=== PATIENT | female | born 1925 | race Caucasian/White ===

== ENCOUNTER 2017-02-12 18:38 | Inpatient (IN) | payer MEDICARE, OTHER ==
[~2017-02-12] VITALS: Ht 175.3 cm; Wt 55.3 kg
[2017-02-12] MEDS ORDERED: SODIUM CHLORIDE 0.9% 1,000 ML IV ONE (20:11)
[2017-02-12] MEDS ORDERED: NALBUPHINE HCL 10 MG/1ml INJECTION IV ONE (20:15)
[2017-02-12] MEDS ORDERED: ONDANSETRON HCL 4 MG/2 ML VIAL IV ONE (20:15)
[2017-02-12 20:59] LABS: Basophils # (auto) 0 uL; Eosinophils # (auto) 0 uL; Eosinophils % (auto) 0.2 % (0.0-7.0); Hemoglobin 12.4 g/dL (12.2-16.2); Lymphocytes # (auto) 1.2 uL; Lymphocytes % (auto) 8.9 % (10.0-50.0); Mean Corpuscular Hgb Conc. 32.5 g/dL (32.0-36.0); Mean Corpuscular Volume 89.2 fL (80.0-100.0); Mean Platelet Volume 7.9 fL (7.4-10.4); Monocytes # (auto) 0.5 uL; Monocytes % (auto) 3.9 % (0.0-12.0); Neutrophils # (auto) 11.7 uL; Platelet Count (auto) 252 10^3/uL (140-450); White Blood Cell 13.4 10^3/uL (4.4-10.8)
[2017-02-12 21:11] LABS: INR 1.04 (0.9-1.15); Prothrombin Time 11.2 sec (9.37-12.3)
[2017-02-12 21:30] LABS: Albumin 3.6 g/dL (3.4-5.0); BUN/Creatinine Ratio 12.8; Calcium 8.7 mg/dL (8.5-10.1); Potassium 3.6 mmol/L (3.5-5.1)
[2017-02-12 21:35] LABS: Bilirubin, Total 0.6 mg/dL (0.2-1.0); Total Protein 7.4 g/dL (6.4-8.2)
[2017-02-12 21:51] LABS: B-Type Natriuretic Peptide 147.02 pg/mL (0-100); Temperature: 23.4 C (20.0-25.0)
[2017-02-12] MEDS ORDERED: PIPERACILLIN-TAZOB 3.375GM 100 ML IV ONE (22:45)
[2017-02-12] MEDS ORDERED: FUROSEMIDE 20 MG/2 ML VIAL IV ONE (22:45)
[2017-02-12 23:49] LABS: Urine Bilirubin Negative (Negative); Urine Blood Negative /uL (Negative); Urine Color Yellow (Yellow); Urine Glucose Normal (Normal); Urine Nitrite Negative (Negative); Urine RBC <1 /hpf (0 - 4); Urine Urobilinogen Normal (Negative)
[2017-02-12 23:50] LABS: Urine Ketone 1+ (Negative)
[2017-02-13] VITALS (9 sets, daily range): BP systolic 101–158; BP diastolic 39–95
[2017-02-13] MEDS ORDERED: SODIUM CHLORIDE 0.9% 1,000 ML IV SCH (00:14)
[2017-02-13] MEDS ORDERED: ONDANSETRON HCL 4 MG/2 ML VIAL IV PRN (00:15)
[2017-02-13] MEDS ORDERED: ASPI81TA27 PO (02:38)
[2017-02-13] MEDS: MORPHINE SULF INJ 2 MG/ML SYRINGE 1ML IV PRN ×4 (03:13→22:23)
[2017-02-13] MEDS ORDERED: POTASSIUM CHL 10 Meq TABLET PO ONE (12:30)
[2017-02-13] MEDS ORDERED: cefTRIAXone 1GM/50ML D5W 50 ML IV ONE (12:45)
[2017-02-13] MEDS: SODIUM CHLORIDE 0.9% 1,000 ML IV SCH ×2 (16:33→23:51)
[2017-02-14] MEDS: MORPHINE SULF INJ 2 MG/ML SYRINGE 1ML IV PRN ×3 (05:01→17:27)
[2017-02-14 05:05] VITALS: BP 131/83
[2017-02-14 08:00] VITALS: BP 185/101
[2017-02-14] MEDS: cefTRIAXone 1GM/50ML D5W 50 ML IV SCH (08:29)
[2017-02-14 08:38] LABS: BUN/Creatinine Ratio 12.9; Basophils # (auto) 0 uL; Basophils % (auto) 0.2 % (0.0-2.0); Calcium 8.7 mg/dL (8.5-10.1); Eosinophils # (auto) 0.1 uL; Hemoglobin 13.2 g/dL (12.2-16.2); Lymphocytes # (auto) 1.1 uL; Lymphocytes % (auto) 10.4 % (10.0-50.0); Mean Corpuscular Hemoglobin 29.2 pg (28.0-32.0); Mean Corpuscular Hgb Conc. 32.1 g/dL (32.0-36.0); Mean Corpuscular Volume 90.8 fL (80.0-100.0); Mean Platelet Volume 8.1 fL (7.4-10.4); Monocytes # (auto) 0.7 uL; Monocytes % (auto) 6.8 % (0.0-12.0); Neutrophils # (auto) 8.4 uL; Neutrophils % (auto) 81.6 % (37.0-80.0); Platelet Count (auto) 243 10^3/uL (140-450); Potassium 3.6 mmol/L (3.5-5.1); Red Cell Distribution Width 13.9 % (11.6-16.0); White Blood Cell 10.3 10^3/uL (4.4-10.8)
[2017-02-14] MEDS: SODIUM CHLORIDE 0.9% 1,000 ML IV SCH (09:30)
[2017-02-14] MEDS: hydrALAZINE HCL 20 MG/ML VL IV PRN (13:17)
[2017-02-14] MEDS ORDERED: ceFAZolin 1GM/50ML D5W 50 ML IV ONE (13:43)
[2017-02-14 17:00] VITALS: BP 156/83
[2017-02-14 21:48] VITALS: BP 124/94
[2017-02-15] MEDS: SODIUM CHLORIDE 0.9% 1,000 ML IV SCH ×3 (00:02→12:16)
[2017-02-15] MEDS: MORPHINE SULF INJ 2 MG/ML SYRINGE 1ML IV PRN ×4 (00:03→18:50)
[2017-02-15 05:55] VITALS: BP 139/84
[2017-02-15 06:20] LABS: Basophils # (auto) 0 uL; Basophils % (auto) 0.3 % (0.0-2.0); Eosinophils # (auto) 0.1 uL; Eosinophils % (auto) 0.5 % (0.0-7.0); Hematocrit 39.4 % (36.0-46.0); Hemoglobin 12.9 g/dL (12.2-16.2); Lymphocytes # (auto) 1.5 uL; Lymphocytes % (auto) 11.3 % (10.0-50.0); Mean Corpuscular Hemoglobin 29.8 pg (28.0-32.0); Mean Corpuscular Hgb Conc. 32.8 g/dL (32.0-36.0); Mean Corpuscular Volume 90.9 fL (80.0-100.0); Mean Platelet Volume 7.9 fL (7.4-10.4); Monocytes # (auto) 0.8 uL; Monocytes % (auto) 5.7 % (0.0-12.0); Neutrophils % (auto) 82.2 % (37.0-80.0); Platelet Count (auto) 238 10^3/uL (140-450); Red Cell Distribution Width 14.4 % (11.6-16.0); White Blood Cell 13.4 10^3/uL (4.4-10.8)
[2017-02-15 06:41] LABS: BUN/Creatinine Ratio 19.2; Calcium 8.4 mg/dL (8.5-10.1); Potassium 4.1 mmol/L (3.5-5.1)
[2017-02-15 08:00] VITALS: BP 215/122
[2017-02-15] MEDS ORDERED: LACTULOSE 20Gm/30ML SOLN PO ONE (09:15)
[2017-02-15] MEDS ORDERED: SOTALOL HCL 80 MG TAB PO ONE (10:15)
[2017-02-15] MEDS: cefTRIAXone 1GM/50ML D5W 50 ML IV SCH (12:14)
[2017-02-15 15:27] VITALS: BP 215/122
[2017-02-15] MEDS: hydrALAZINE HCL 20 MG/ML VL IV PRN (16:08)
[2017-02-15] MEDS ORDERED: ENALAPRILAT 1.25 MG/ML-1ML VIAL IV PRN (16:45)
[2017-02-15] MEDS ORDERED: cloNIDine 0.2 mg/24hr 7DAY PATCH TD SCH (17:00)
[2017-02-15 20:20] VITALS: BP 186/89
[2017-02-15 21:30] VITALS: BP 186/89
[2017-02-15] MEDS: SOTALOL HCL 80 MG TAB PO SCH (22:56)
[2017-02-16] MEDS: SODIUM CHLORIDE 0.9% 1,000 ML IV SCH (01:51)
[2017-02-16 04:32] VITALS: BP 147/89
[2017-02-16] MEDS: MORPHINE SULF INJ 2 MG/ML SYRINGE 1ML IV PRN (05:17)
[2017-02-16 08:00] VITALS: BP 135/79
[2017-02-16] MEDS: cefTRIAXone 1GM/50ML D5W 50 ML IV SCH (09:04)
[2017-02-16 09:09] VITALS: BP 161/111
[2017-02-16] MEDS: SOTALOL HCL 80 MG TAB PO SCH ×2 (10:00→22:18)
[2017-02-16] MEDS ORDERED: ALBUMIN 25% 0 ML IV ONE (12:01)
[2017-02-16] MEDS ORDERED: TETRACAINE 1% INJ 2 ML VIAL IJ ONE (12:01)
[2017-02-16] MEDS ORDERED: ALBUMIN 5% 250 ML IV ONE (12:02)
[2017-02-16 12:05] VITALS: BP 135/79
[2017-02-16] MEDS ORDERED: fentaNYL CITRATE 100 MCG/2 ML VL ONE (12:06)
[2017-02-16] MEDS ORDERED: ONDANSETRON HCL 4 MG/2 ML VIAL ONE (12:06)
[2017-02-16] MEDS ORDERED: KETOROLAC TROMETH 60MG/2ML VIAL IM ONE (12:07)
[2017-02-16] MEDS ORDERED: DEXAMETHASONE SOD PHOS 10MG/1ML VIAL INJ ONE (12:07)
[2017-02-16] MEDS ORDERED: ceFAZolin 1GM/50ML D5W 100 ML IV ONE (12:08)
[2017-02-16] MEDS ORDERED: LIDOCAINE 1% HCL (LOCAL ANESTH.) INJ 20ML MDV ONE (13:06)
[2017-02-16] MEDS ORDERED: MIDAZOLAM HCL 1MG/1ML-2 ML VIAL ONE (13:12)
[2017-02-16] MEDS ORDERED: HYDROmorphone HCL 2 MG/ML VL IV PRN (14:45)
[2017-02-16] MEDS ORDERED: ONDANSETRON HCL 4 MG/2 ML VIAL IV ONE (14:45)
[2017-02-16 16:59] VITALS: BP 143/85
[2017-02-16] MEDS: ceFAZolin 1GM/50ML D5W 50 ML IV SCH ×2 (17:20→23:39)
[2017-02-16 20:00] VITALS: BP 172/89
[2017-02-16] MEDS: LACTULOSE 20Gm/30ML SOLN PO PRN (22:19)
[2017-02-17] MEDS: ceFAZolin 1GM/50ML D5W 50 ML IV SCH ×2 (06:05→13:09)
[2017-02-17 08:00] VITALS: BP 140/85
[2017-02-17 08:05] LABS: Hematocrit 36.3 % (36.0-46.0); Hemoglobin 11.8 g/dL (12.2-16.2)
[2017-02-17] MEDS ORDERED: ENOXAPARIN SOD 40 MG/0.4 ML SYRINGE SC SCH (10:00)
[2017-02-17] MEDS: cefTRIAXone 1GM/50ML D5W 50 ML IV SCH (10:12)
[2017-02-17] MEDS: SOTALOL HCL 80 MG TAB PO SCH ×2 (10:13→21:40)
[2017-02-17] MEDS: ENOXAPARIN SOD 40 MG/0.4 ML SYRINGE SC SCH (10:14)
[2017-02-17] MEDS: HYDROcodone-ACET 5/325MG TAB PO PRN (13:08)
[2017-02-17] MEDS: BOOST PLUS 8 ounce PO SCH ×2 (13:10→18:47)
[2017-02-17 20:00] VITALS: BP 159/116
[2017-02-17] MEDS: MORPHINE SULF INJ 2 MG/ML SYRINGE 1ML IV PRN (21:39)
[2017-02-17] MEDS: LACTULOSE 20Gm/30ML SOLN PO PRN (21:40)
[2017-02-17 22:00] VITALS: BP 159/116
[2017-02-18] VITALS (11 sets, daily range): BP systolic 101–155; BP diastolic 66–116
[2017-02-18 06:39] LABS: Hematocrit 27.4 % (36.0-46.0); Hemoglobin 9.2 g/dL (12.2-16.2)
[2017-02-18] MEDS ORDERED: cefTRIAXone 1GM/50ML D5W 50 ML IV SCH (09:00)
[2017-02-18] MEDS: ENOXAPARIN SOD 40 MG/0.4 ML SYRINGE SC SCH (09:01)
[2017-02-18] MEDS: SOTALOL HCL 80 MG TAB PO SCH ×2 (09:01→22:05)
[2017-02-18] MEDS: BOOST PLUS 8 ounce PO SCH ×3 (09:07→18:38)
[2017-02-18] MEDS ORDERED: SOTA80TA20 PO (09:45)
[2017-02-18] MEDS ORDERED: HAL5T PO (09:45)
[2017-02-18] MEDS ORDERED: RIVA10TA PO (09:45)
[2017-02-18] MEDS ORDERED: FLEET ENEMA(ADULT) 135 ML PR ONE (10:00)
[2017-02-18] MEDS: LACTULOSE 20Gm/30ML SOLN PO PRN (12:34)
[2017-02-18] MEDS: HALOPERIDOL 5 MG TAB PO PRN (14:32)
[2017-02-19] MEDS: HYDROcodone-ACET 5/325MG TAB PO PRN ×2 (03:38→21:51)
[2017-02-19 05:11] VITALS: BP_SYST 129; BP_SYST 163; BP_DIAS 80; BP_DIAS 97
[2017-02-19 06:43] LABS: Hemoglobin 9.5 g/dL (12.2-16.2)
[2017-02-19] MEDS: BOOST PLUS 8 ounce PO SCH ×3 (09:01→18:40)
[2017-02-19 09:20] VITALS: BP 158/87
[2017-02-19] MEDS: ENOXAPARIN SOD 40 MG/0.4 ML SYRINGE SC SCH (10:30)
[2017-02-19] MEDS: SOTALOL HCL 80 MG TAB PO SCH ×2 (10:30→21:51)
[2017-02-19] MEDS: HALOPERIDOL 5 MG TAB PO PRN (13:40)
[2017-02-19 17:18] VITALS: BP 198/106
[2017-02-19 22:00] VITALS: BP 158/81
[2017-02-19 23:30] VITALS: BP 149/71
[2017-02-20 05:00] VITALS: BP 146/71
[2017-02-20 07:41] LABS: Hemoglobin 9.7 g/dL (12.2-16.2)
[2017-02-20] MEDS: BOOST PLUS 8 ounce PO SCH ×2 (08:00→12:00)
[2017-02-20 08:17] VITALS: BP 151/104
[2017-02-20] MEDS: hydrALAZINE HCL 20 MG/ML VL IV PRN (09:06)
[2017-02-20] MEDS: ENOXAPARIN SOD 40 MG/0.4 ML SYRINGE SC SCH (09:09)
[2017-02-20] MEDS: SOTALOL HCL 80 MG TAB PO SCH (09:09)
[2017-02-20] MEDS ORDERED: HYDROcodone-ACET 5/325MG TAB PO PRN (09:45)
[2017-02-20 12:39] VITALS: BP 116/54
[2017-02-20 15:24] VITALS: BP 151/104
== END 2017-02-20 17:40 | DRG 469 ==
LOC: EDBD 18:38 → ER 18:49 → OVERFLOW 18:50 → WEST WING 02-13 00:50
PROVIDERS: ADMIT Emergency Medicine; ATTEND Internal Medicine
PROC: 0MBM0ZZ Excision of Left Hip Bursa and Ligament, Open Approach (ICD-10-PCS; 2017-02-16)
PROC: 0SRS0JZ Replacement of Left Hip Joint, Femoral Surface with Synthetic Substitute, Open Approach (ICD-10-PCS; principal; 2017-02-16 13:13)
PROC: 30233N1 Transfusion of Nonautologous Red Blood Cells into Peripheral Vein, Percutaneous Approach (ICD-10-PCS; 2017-02-18)
DX: M80.052A Age-related osteoporosis with current pathological fracture, left femur, initial encounter for fracture (principal); G93.41 Metabolic encephalopathy; I50.43 Acute on chronic combined systolic (congestive) and diastolic (congestive) heart failure; M70.72 Other bursitis of hip, left hip; G30.9 Alzheimer's disease, unspecified; I48.0 Paroxysmal atrial fibrillation; I11.0 Hypertensive heart disease with heart failure; F02.80 Dementia in other diseases classified elsewhere, unspecified severity, without behavioral disturbance, psychotic disturbance, mood disturbance, and anxiety; W19.XXXA Unspecified fall, initial encounter; Y93.89 Activity, other specified; Y92.89 Other specified places as the place of occurrence of the external cause; Z90.710 Acquired absence of both cervix and uterus; Z88.6 Allergy status to analgesic agent; Z88.5 Allergy status to narcotic agent
CPT/HCPCS: 36415; 71010; 73030; 73060; 73501; 73502; 80048; 80053; 81001; 83605; 83880; 84484; 85014; 85018; 85025; 85379; 85610; 85730; 86850; 86900; 86901; 86920; 87040; 93005; 93306; 93970; 96361; 96365; 96375; 97001; 97110; 97116; 97530; A4565; J0690; J0696; J1100; J1885; J2001; J2250; J2405; J2543

== ENCOUNTER 2017-04-08 01:59 | Emergency (ER) | payer MEDICARE, OTHER ==
[~2017-04-08] VITALS: Ht 162.6 cm; Wt 54.4 kg
[~2017-04-08 01:59] MED LIST: HAL5T PO; RIVA10TA PO; SOTA80TA20 PO
[2017-04-08 04:52] LABS: Basophils # (auto) 0 uL; Basophils % (auto) 0.3 % (0.0-2.0); Eosinophils # (auto) 0.3 uL; Hematocrit 31.1 % (36.0-46.0); Hemoglobin 10.2 g/dL (12.2-16.2); Lymphocytes # (auto) 2.3 uL; Lymphocytes % (auto) 25.8 % (10.0-50.0); Mean Corpuscular Hemoglobin 29.6 pg (28.0-32.0); Mean Corpuscular Hgb Conc. 32.8 g/dL (32.0-36.0); Mean Corpuscular Volume 90.2 fL (80.0-100.0); Mean Platelet Volume 8.4 fL (7.4-10.4); Monocytes # (auto) 0.7 uL; Monocytes % (auto) 7.5 % (0.0-12.0); Neutrophils # (auto) 5.6 uL; Neutrophils % (auto) 63.4 % (37.0-80.0); Platelet Count (auto) 308 10^3/uL (140-450); Red Cell Distribution Width 16.5 % (11.6-16.0); White Blood Cell 8.9 10^3/uL (4.4-10.8)
[2017-04-08 05:06] LABS: INR 1.01 (0.9-1.15); Partial Thromboplastin Time 23.8 sec (22.64-33.71)
[2017-04-08 05:10] LABS: Albumin 2.5 g/dL (3.4-5.0); Anion Gap 10 (5-15); Calcium 8.4 mg/dL (8.5-10.1); Carbon Dioxide 24 mmol/L (21-32); Chloride 112 mmol/L (98-107); Glucose 111 mg/dL (74-106); Magnesium 2.2 mg/dL (1.6-2.6); Potassium 4.2 mmol/L (3.5-5.1); Sodium 146 mmol/L (136-145)
[2017-04-08 05:13] LABS: Alkaline Phosphatase 314 U/L (45-117); Aspartate Aminotransferase 256 U/L (15-37); BUN/Creatinine Ratio 15.2; Bilirubin, Total 0.4 mg/dL (0.2-1.0); Blood Urea Nitrogen 14 mg/dL (7-18); GFR African American 74 mL/min; GFR Non-African American 61 mL/min; Total Protein 6.2 g/dL (6.4-8.2)
[2017-04-08 10:00] VITALS: BP 116/56
== END 2017-04-08 11:05 | disposition home or self-care (01) ==
LOC: EDUNIT# 01:59 → ER 02:10
DX: G30.9 Alzheimer's disease, unspecified (principal); F02.80 Dementia in other diseases classified elsewhere, unspecified severity, without behavioral disturbance, psychotic disturbance, mood disturbance, and anxiety; R94.5 Abnormal results of liver function studies; D64.9 Anemia, unspecified; E46 Unspecified protein-calorie malnutrition; E03.9 Hypothyroidism, unspecified; I48.91 Unspecified atrial fibrillation; I10 Essential (primary) hypertension; Z90.710 Acquired absence of both cervix and uterus
CPT/HCPCS: 36415; 71010; 80053; 83735; 84443; 84484; 85025; 85610; 85730; 93005